=== PATIENT | female | born 1955 | race Caucasian/White ===

== ENCOUNTER 2018-07-11 13:27 | Inpatient (IN) | payer MEDICAID ==
[~2018-07-11] VITALS: Ht 152.4 cm; Wt 55.3 kg
[2018-07-11] MEDS: SODIUM CHLORIDE 0.45% 1,000 ML IV SCH (05:20)
[2018-07-11] MEDS ORDERED: TOPA25 MT (13:37)
[2018-07-11] MEDS ORDERED: ASPI-986 PO (13:37)
[2018-07-11] MEDS ORDERED: METF-815 PO (13:37)
[2018-07-11] MEDS ORDERED: FERR220S12 PO (13:37)
[2018-07-11] MEDS ORDERED: KEPP250 PO (13:37)
[2018-07-11] MEDS ORDERED: HYDR12.529 MT (13:37)
[2018-07-11] MEDS ORDERED: ATOR10TA PO (13:37)
[2018-07-11] MEDS ORDERED: CALC-30 PO (13:37)
[2018-07-11 20:08] LABS: BASOPHILS % 1.1 % (0.0-2.0); EOSINOPHILS % 3.7 % (0.0-5.0); HEMATOCRIT. 23.9 % (36.0-48.0); HEMOGLOBIN. 8.1 g/dL (12.0-16.0); LYMPHOCYTES % 12.5 % (20.0-50.0); MEAN CORPUSCULAR VOLUME 88.2 fL (81.0-99.0); MEAN PLATELET VOLUME 11.7 fl (7.4-10.4); MONOCYTES % 3.7 % (2.0-8.0); PLATELET 236 x1000/uL (130-400); RED BLOOD CELL COUNT 2.71 mill/uL (4.2-5.4); RED CELL DISTRIBUTION WIDTH 13.7 % (11.6-14.6)
[2018-07-11 20:13] LABS: CHLORIDE 111 mEq/L (98-107)
[2018-07-11] MEDS ORDERED: DOCUSATE SODIUM 100MG CAPSULE PO PRN (21:45)
[2018-07-11] MEDS ORDERED: HYDROCODONE/ACETAMINOPHEN 5/325MG TABLET PO PRN (21:45)
[2018-07-11] MEDS ORDERED: GUAIFENESIN 200MG/10ML SUGAR FREE UDC PO PRN (21:45)
[2018-07-11] MEDS ORDERED: CLONIDINE 0.1MG TABLET PO PRN (21:45)
[2018-07-11] MEDS ORDERED: DIPHENHYDRAMINE 50MG/ML VIAL IV PRN (21:45)
[2018-07-11] MEDS ORDERED: MAGNESIUM/ALUMINUM HYDROXIDE/SIMETHICONE 30ML UDC PO PRN (21:45)
[2018-07-11] MEDS ORDERED: IPRATROPIUM/ALBUTEROL 0.5-3(2.5)MG/3ML NEB INH PRN (21:45)
[2018-07-11] MEDS ORDERED: ACETAMINOPHEN 325MG TABLET PO PRN (21:45)
[2018-07-11] MEDS ORDERED: ONDANSETRON HCL 4MG/2ML INJ IV PRN (21:45)
[2018-07-11] MEDS ORDERED: LORAZEPAM 2MG/ML CPJ IV PRN (21:45)
[2018-07-11] MEDS ORDERED: MORPHINE SULFATE 4 MG/ML CPJ (NOT FOR IM USE) IV PRN (21:45)
[2018-07-12] VITALS (13 sets, daily range): BP systolic 88–114; BP diastolic 41–66
[2018-07-12 05:15] LABS: BASOPHILS % 1.2 % (0.0-2.0); EOSINOPHILS % 4.8 % (0.0-5.0); LYMPHOCYTES % 21.8 % (20.0-50.0); MEAN CORPUSCULAR HEMOGLOBIN 29.5 pg (28.0-32.0); MEAN CORPUSCULAR VOLUME 87.6 fL (81.0-99.0); MEAN PLATELET VOLUME 10.6 fl (7.4-10.4); MONOCYTES % 6.5 % (2.0-8.0); NEUTROPHILS % 65.7 % (40.0-76.0); PLATELET 188 x1000/uL (130-400); RED BLOOD CELL COUNT 2.34 mill/uL (4.2-5.4); RED CELL DISTRIBUTION WIDTH 13.2 % (11.6-14.6)
[2018-07-12 05:17] LABS: CHLORIDE 112 mEq/L (98-107)
[2018-07-12 05:25] LABS: HEMATOCRIT. 20.5 % (36.0-48.0); HEMOGLOBIN. 6.9 g/dL (12.0-16.0)
[2018-07-12 05:29] LABS: LDL CHOLESTEROL 58 mg/dL (5-100)
[2018-07-12 05:30] LABS: HDL CHOLESTEROL 36 mg/dL (40-59)
[2018-07-12 05:32] LABS: T4 FREE 1.06 ng/dL (0.76-1.46)
[2018-07-12] MEDS ORDERED: NA PHOS,M-B/NA PHOS,DI-BA ENEMA 118ML PR PRN (09:00)
[2018-07-12] MEDS ORDERED: BLOOD SUGAR DIAGNOSTIC STRIP TEST SCH (09:39)
[2018-07-12] MEDS ORDERED: INSULIN LISPRO 100 UNITS/ML SUBCUT SCH (09:39)
[2018-07-12] MEDS ORDERED: DEXTROSE 50% WATER 50ML SYRINGE IV PRN (09:45)
[2018-07-12] MEDS: BLOOD SUGAR DIAGNOSTIC STRIP TEST SCH ×3 (12:04→21:43)
[2018-07-12] MEDS: INSULIN LISPRO 100 UNITS/ML SUBCUT SCH ×4 (12:50→21:00)
[2018-07-12] MEDS: PANTOPRAZOLE SODIUM 40 MG/VIAL IV SCH ×2 (16:59→21:43)
[2018-07-12 17:04] LABS: HEMATOCRIT 25.6 % (36.0-48.0); HEMOGLOBIN 8.7 g/dL (12.0-16.0)
[2018-07-12 17:13] LABS: INR 1.1; PARTIAL THROMBOPLASTIN TIME 27.5 sec (23.4-31.0); PROTHROMBIN TIME 10.6 sec (9.1-11.1)
[2018-07-12 17:36] LABS: FERRITIN 33 ng/mL (10-291)
[2018-07-12 18:04] LABS: TOTAL IRON BINDING CAPACITY 266 ug/dL (250-450)
[2018-07-12] MEDS: FERROUS SULFATE 325MG TABLET PO SCH (19:00)
[2018-07-12] MEDS: LEVETIRACETAM 500MG/5ML CUP PO SCH (21:43)
[2018-07-12] MEDS ORDERED: CYCL10TA7 PO (23:49)
[2018-07-12] MEDS ORDERED: DICL50TA9 PO (23:50)
[2018-07-13] VITALS: BP 97/42
[2018-07-13 00:12] LABS: HEMATOCRIT 26.1 % (36.0-48.0); HEMOGLOBIN 9.5 g/dL (12.0-16.0)
[2018-07-13 00:21] LABS: INR 1.1; PROTHROMBIN TIME 10.7 sec (9.1-11.1)
[2018-07-13 04:00] VITALS: BP 113/41
[2018-07-13] MEDS: BLOOD SUGAR DIAGNOSTIC STRIP TEST SCH ×4 (06:39→21:00)
[2018-07-13] MEDS: SODIUM CHLORIDE 0.45% 1,000 ML IV SCH ×3 (06:46→11:02)
[2018-07-13 06:58] LABS: BASOPHILS % 0.6 % (0.0-2.0); EOSINOPHILS % 3.7 % (0.0-5.0); HEMATOCRIT. 26.3 % (36.0-48.0); HEMOGLOBIN. 9.2 g/dL (12.0-16.0); LYMPHOCYTES % 15.7 % (20.0-50.0); MEAN CORPUSCULAR HEMOGLOBIN 30.9 pg (28.0-32.0); MEAN CORPUSCULAR VOLUME 88.1 fL (81.0-99.0); MEAN PLATELET VOLUME 11.3 fl (7.4-10.4); MONOCYTES % 5.3 % (2.0-8.0); NEUTROPHILS % 74.7 % (40.0-76.0); PLATELET 167 x1000/uL (130-400); RED BLOOD CELL COUNT 2.98 mill/uL (4.2-5.4); RED CELL DISTRIBUTION WIDTH 13.9 % (11.6-14.6)
[2018-07-13 07:01] LABS: PARTIAL THROMBOPLASTIN TIME 27.5 sec (23.4-31.0); PROTHROMBIN TIME 10.5 sec (9.1-11.1)
[2018-07-13] MEDS: INSULIN LISPRO 100 UNITS/ML SUBCUT SCH ×4 (07:35→20:46)
[2018-07-13 07:37] LABS: CHLORIDE 112 mEq/L (98-107)
[2018-07-13] MEDS: FERROUS SULFATE 325MG TABLET PO SCH ×3 (07:50→17:29)
[2018-07-13] MEDS: LEVETIRACETAM 500MG/5ML CUP PO SCH ×2 (07:58→20:44)
[2018-07-13] MEDS: HYDROCHLOROTHIAZIDE 25MG TABLET PO SCH (07:58)
[2018-07-13 08:00] VITALS: BP 101/48
[2018-07-13] MEDS: PANTOPRAZOLE SODIUM 40 MG/VIAL IV SCH ×2 (08:18→20:45)
[2018-07-13] MEDS ORDERED: SIMETHICONE 40 MG/0.6 ML 30ML ONE (11:58)
[2018-07-13] MEDS ORDERED: BACTERIOSTATIC SODIUM CHLORIDE 0.9% 30ML VIAL IJ ONE (11:58)
[2018-07-13] MEDS ORDERED: MIDAZOLAM HCL 5 MG/5 ML VIAL ONE (13:02)
[2018-07-13] MEDS ORDERED: FENTANYL CITRATE/PF 50MCG/ML 2ML VIAL ONE (13:02)
[2018-07-13] MEDS ORDERED: FENTANYL CITRATE/PF 50MCG/ML 2ML VIAL IV ONE (13:11)
[2018-07-13] MEDS ORDERED: MIDAZOLAM HCL 2 MG/2 ML VIAL IV PRN (13:12)
[2018-07-13] MEDS: SUCRALFATE 1 G/10 ML UDC PO SCH ×2 (17:29→20:44)
[2018-07-13 20:00] VITALS: BP 139/69
[2018-07-13 20:39] LABS: HEMATOCRIT 25.6 % (36.0-48.0); HEMOGLOBIN 8.7 g/dL (12.0-16.0)
[2018-07-13 21:52] LABS: VITAMIN B12 SERUM 1393 pg/mL (211-911)
[2018-07-13 22:13] LABS: FOLIC ACID (FOLATE) SERUM > 20.00 ng/mL (>5.38)
[2018-07-14] VITALS: BP 99/42
[2018-07-14] MEDS: SODIUM CHLORIDE 0.45% 1,000 ML IV SCH ×2 (00:39→12:02)
[2018-07-14 04:00] VITALS: BP 104/44
[2018-07-14] MEDS: SUCRALFATE 1 G/10 ML UDC PO SCH ×2 (06:25→12:22)
[2018-07-14] MEDS: BLOOD SUGAR DIAGNOSTIC STRIP TEST SCH ×2 (06:26→12:22)
[2018-07-14] MEDS: INSULIN LISPRO 100 UNITS/ML SUBCUT SCH ×2 (07:45→12:22)
[2018-07-14 08:00] VITALS: BP 111/42
[2018-07-14] MEDS: LEVETIRACETAM 500MG/5ML CUP PO SCH (08:11)
[2018-07-14] MEDS: PANTOPRAZOLE SODIUM 40 MG/VIAL IV SCH (08:11)
[2018-07-14] MEDS: FERROUS SULFATE 325MG TABLET PO SCH ×2 (08:11→12:23)
[2018-07-14] MEDS: HYDROCHLOROTHIAZIDE 25MG TABLET PO SCH (08:11)
[2018-07-14 08:46] LABS: BASOPHILS % 0.6 % (0.0-2.0); EOSINOPHILS % 3.5 % (0.0-5.0); HEMATOCRIT. 26.1 % (36.0-48.0); LYMPHOCYTES % 17.1 % (20.0-50.0); MEAN CORPUSCULAR HEMOGLOBIN 30.6 pg (28.0-32.0); MEAN CORPUSCULAR VOLUME 88.8 fL (81.0-99.0); MEAN PLATELET VOLUME 11.3 fl (7.4-10.4); MONOCYTES % 5.1 % (2.0-8.0); NEUTROPHILS % 73.7 % (40.0-76.0); PLATELET 190 x1000/uL (130-400); RED BLOOD CELL COUNT 2.94 mill/uL (4.2-5.4); RED CELL DISTRIBUTION WIDTH 13.9 % (11.6-14.6)
[2018-07-14 09:02] LABS: CHLORIDE 113 mEq/L (98-107)
[2018-07-14 12:00] VITALS: BP 124/62
[2018-07-14 16:00] VITALS: BP 138/76
[2018-07-14 16:07] LABS: HEMATOCRIT 28.4 % (36.0-48.0); HEMOGLOBIN 9.8 g/dL (12.0-16.0)
[2018-07-14 16:19] VITALS: BP 138/76
== END 2018-07-14 16:55 | disposition home or self-care (01) | DRG 241 ==
LOC: ER 13:27 → EDBEDREQTM 21:11 → EDBEDREQ 21:11 → 6WST 07-12 07:59 → ENRESERV 07-12 07:59
PROVIDERS: ADMIT Internal Medicine; ATTEND Internal Medicine
PROC: 30233N1 Transfusion of Nonautologous Red Blood Cells into Peripheral Vein, Percutaneous Approach (ICD-10-PCS; 2018-07-12)
PROC: 0DB78ZX Excision of Stomach, Pylorus, Via Natural or Artificial Opening Endoscopic, Diagnostic (ICD-10-PCS; principal; 2018-07-13 14:00)
DX: K29.61 Other gastritis with bleeding (principal); E44.1 Mild protein-calorie malnutrition; D64.9 Anemia, unspecified; E11.9 Type 2 diabetes mellitus without complications; I10 Essential (primary) hypertension; K44.9 Diaphragmatic hernia without obstruction or gangrene; Z79.899 Other long term (current) drug therapy; Z79.82 Long term (current) use of aspirin; Z90.89 Acquired absence of other organs; Z79.84 Long term (current) use of oral hypoglycemic drugs
CPT/HCPCS: 36415; 36430; 74176; 76700; 80048; 80061; 82270; 82607; 82728; 82746; 82962; 83540; 83550; 84439; 84443; 85014; 85018; 85384; 86850; 86900; 86920; 88305; 88313; 96361; 96374; 99285; C9113; J1815; J2250; J3010; J3490; J7040; P9016

== ENCOUNTER 2021-04-13 22:09 | Emergency (ER) | payer MEDICARE, MEDICAID ==
[~2021-04-13] VITALS: Ht 152.4 cm; Wt 65.0 kg
[~2021-04-13 22:09] MED LIST: ATOR10TA PO; CALC-1249 PO; CYCL10TA7 PO; FERR220S12 PO; HYDR12.529 MT; KEPP250 PO; METF-873 PO; TOPA25 MT
[2021-04-13] MEDS ORDERED: TETANUS, DIPHTHERIA, PERTUSSIS VAC/PF 0.5ML (>7YR OLD) IM ONE (23:45)
[2021-04-13] MEDS ORDERED: LIDOCAINE HCL/PF 1% 10 MG/ML 5ML VIAL INFIL ONE (23:45)
[2021-04-14 00:18] LABS: BASOPHILS % 1.2 % (0.0-2.0); EOSINOPHILS % 3.5 % (0.0-5.0); HEMATOCRIT. 30.2 % (36.0-48.0); LYMPHOCYTES % 16.8 % (20.0-50.0); MEAN CORPUSCULAR HEMOGLOBIN 29.4 pg (28.0-32.0); MEAN CORPUSCULAR VOLUME 88.5 fL (81.0-99.0); MEAN PLATELET VOLUME 10.5 fl (7.4-10.4); MONOCYTES % 6.9 % (2.0-8.0); NEUTROPHILS % 71.6 % (40.0-76.0); PLATELET 131 x1000/uL (130-400); RED BLOOD CELL COUNT 3.41 mill/uL (4.2-5.4); RED CELL DISTRIBUTION WIDTH 14.3 % (11.6-14.6)
[2021-04-14 00:24] LABS: INR 0.9; PARTIAL THROMBOPLASTIN TIME 24.9 sec (23.4-31.0); PROTHROMBIN TIME 10.2 sec (9.6-11.0)
[2021-04-14 02:42] VITALS: BP 152/68
== END 2021-04-14 02:43 | disposition home or self-care (01) ==
LOC: ER 22:09
DX: S81.812A Laceration without foreign body, left lower leg, initial encounter (principal); E11.9 Type 2 diabetes mellitus without complications; I10 Essential (primary) hypertension; Z04.9 Encounter for examination and observation for unspecified reason; Z86.59 Personal history of other mental and behavioral disorders; X58.XXXA Exposure to other specified factors, initial encounter; Y93.89 Activity, other specified; Y92.89 Other specified places as the place of occurrence of the external cause; Y99.8 Other external cause status
CPT/HCPCS: 12001; 36415; 80048; 85025; 85610; 85730; 90471; 90715; 99283; J3490

== ENCOUNTER 2021-04-16 15:55 | Emergency (ER) | payer MEDICARE, MEDICAID ==
[~2021-04-16] VITALS: Ht 160 cm; Wt 63.0 kg
[2021-04-16] MEDS ORDERED: HYDR-4622 TP (17:22)
[2021-04-16 17:34] VITALS: BP 130/78
== END 2021-04-16 17:34 | disposition home or self-care (01) ==
LOC: ER 15:55
DX: I83.892 Varicose veins of left lower extremity with other complications (principal); L30.9 Dermatitis, unspecified; Z79.899 Other long term (current) drug therapy
CPT/HCPCS: 99282

== ENCOUNTER 2024-04-05 18:55 | Inpatient (IN) | payer MEDICARE, MEDICAID ==
[~2024-04-05] VITALS: Ht 154.9 cm; Wt 59.4 kg
[~2024-04-05 18:55] MED LIST changes: +ATOR40TA70 PO; +CYCL10TA21 PO; -CYCL10TA7 PO; +HYDR-4622 TP; +LEVE500T19 PO; +LEVE500T98 PO; +PANT40TA51 PO
[2024-04-05] MEDS: SODIUM CHLORIDE 0.9% 1000ML BAG (SEPSIS BOLUS) IV ONE (20:17)
[2024-04-05] MEDS: PIPERACILLIN/TAZO 3.375G/50ML 50 ML IV ONE (20:17)
[2024-04-05] MEDS: VANCOMYCIN 1G PREMIX 200 ML IV ONE (20:17)
[2024-04-05] MEDS: ACETAMINOPHEN 325MG TABLET PO STA (20:18)
[2024-04-05 20:27] LABS: RED CELL DISTRIBUTION WIDTH 22.5 % (11.6-14.6)
[2024-04-05 20:28] LABS: CLARITY URINE CLOUDY (CLEAR); COLOR URINE DARK YELLOW (YELLOW)
[2024-04-05 20:29] LABS: HEMOGLOBIN. 8.7 g/dL (12.0-16.0); MEAN CORPUSCULAR HEMOGLOBIN 25.4 pg (28.0-32.0); MEAN CORPUSCULAR HGB CONC 31.1 g/dL (31.0-37.0); MEAN CORPUSCULAR VOLUME 81.6 fL (81.0-99.0); PLATELET 177 x1000/uL (130-400); RED BLOOD CELL COUNT 3.43 mill/uL (4.2-5.4); WHITE BLOOD COUNT 5.4 x1000/uL (4.5-11.0)
[2024-04-05 20:29] LABS: PH URINE 5.5 (4.5-8.0); SPECIFIC GRAVITY URINE 1.014 (1.005-1.030)
[2024-04-05 20:30] LABS: GLUCOSE URINE NEGATIVE (NEGATIVE); KETONES URINE NEGATIVE (NEGATIVE); NITRITE URINE POSITIVE (NEGATIVE); OCCULT BLOOD URINE 1+ (NEGATIVE); PROTEIN URINE 2+ (NEGATIVE)
[2024-04-05 20:30] LABS: DIFFERENTIAL COMMENT 1
[2024-04-05 20:31] LABS: LEUKOCYTE ESTERASE URINE 1+ (NEGATIVE)
[2024-04-05 20:33] LABS: RBC URINE 0-2 /hpf (0-2)
[2024-04-05 20:33] LABS: CHLORIDE 105 mEq/L (98-107); POTASSIUM 4.1 mEq/L (3.5-5.1); SODIUM 137 mEq/L (136-145)
[2024-04-05 20:34] LABS: CARBON DIOXIDE 22 mEq/L (21-32)
[2024-04-05 20:34] LABS: BACTERIA URINE 1+; SQUAMOUS EPITHELIAL CELL URINE 1+ /lpf (RARE/1+)
[2024-04-05 20:35] LABS: CALCIUM 9.2 mg/dL (8.7-10.4)
[2024-04-05 20:39] LABS: CREATININE 1.6 mg/dL (0.6-1.0); GLUCOSE 285 mg/dL (70-105)
[2024-04-05 20:40] LABS: UREA NITROGEN BLOOD 31 mg/dL (9-23)
[2024-04-05 20:41] LABS: ALANINE AMINOTRANSFERASE 24 IU/L (10-49); ALBUMIN 4.5 g/dL (3.2-4.8); ASPARTATE AMINOTRANSFERASE 37 IU/L (<34)
[2024-04-05 20:42] LABS: BILIRUBIN DIRECT 0.2 mg/dL (<=3.0); BILIRUBIN TOTAL 0.4 mg/dL (0.1-1.0); PROTEIN TOTAL 7.2 g/dL (6.0-8.3)
[2024-04-05 20:43] LABS: PROTHROMBIN TIME 11.1 sec (9.6-11.0)
[2024-04-05 20:53] LABS: PLATELET ESTIMATE NORMAL
[2024-04-05 21:05] LABS: TROPONIN I HIGH SENSITIVITY 43 ng/L (3.0-34)
[2024-04-05] MEDS ORDERED: CLONIDINE 0.1MG TABLET PO PRN (22:30)
[2024-04-05] MEDS ORDERED: DOCUSATE SODIUM 100MG CAPSULE PO PRN (22:30)
[2024-04-05] MEDS ORDERED: GUAIFENESIN 200MG/10ML SUGAR FREE UDC PO PRN (22:30)
[2024-04-05] MEDS ORDERED: ONDANSETRON HCL 4MG/2ML INJ IV PRN (22:30)
[2024-04-05] MEDS ORDERED: MAGNESIUM/ALUMINUM HYDROXIDE/SIMETHICONE 30ML UDC PO PRN (22:30)
[2024-04-05] MEDS ORDERED: ACETAMINOPHEN 325MG TABLET PO PRN (22:30)
[2024-04-05] MEDS ORDERED: IPRATROPIUM/ALBUTEROL 0.5-3(2.5)MG/3ML NEB HHN PRN (23:10)
[2024-04-05 23:32] LABS: IRON 23 ug/dL (50-170); TRIGLYCERIDE 245 mg/dL (0-150)
[2024-04-05 23:33] LABS: LDL CHOLESTEROL 50 mg/dL (5-100)
[2024-04-05 23:34] LABS: CHOLESTEROL 142 mg/dL (<200); HDL CHOLESTEROL 46 mg/dL (>65); PHOSPHORUS 2.4 mg/dL (2.5-4.9)
[2024-04-05 23:35] LABS: TOTAL IRON BINDING CAPACITY 435 ug/dl (250-425)
[2024-04-05 23:38] LABS: T4 FREE 1.28 ng/dL (0.89-1.76)
[2024-04-05 23:39] LABS: THYROID STIMULATING HORMONE 1.23 uIU/mL (0.55-4.78)
[2024-04-06] MEDS: DOXYCYCLINE 100MG/100ML 100 ML IV SCH (01:31)
[2024-04-06] MEDS: MAGNESIUM 2 G PREMIX 50 ML IV NR (04:33)
[2024-04-06] MEDS: FERROUS SULFATE 325MG TABLET PO SCH (06:54)
[2024-04-06 08:22] LABS: CARBON DIOXIDE 24 mEq/L (21-32); CHLORIDE 106 mEq/L (98-107); SODIUM 139 mEq/L (136-145)
[2024-04-06 08:23] LABS: CALCIUM 8.7 mg/dL (8.7-10.4); HEMATOCRIT. 27.5 % (36.0-48.0); HEMOGLOBIN. 8.1 g/dL (12.0-16.0); MEAN CORPUSCULAR HEMOGLOBIN 24.1 pg (28.0-32.0); MEAN CORPUSCULAR HGB CONC 29.6 g/dL (31.0-37.0); MEAN CORPUSCULAR VOLUME 81.6 fL (81.0-99.0); MEAN PLATELET VOLUME 9.8 fl (7.4-10.4); PLATELET 152 x1000/uL (130-400); RED BLOOD CELL COUNT 3.36 mill/uL (4.2-5.4); RED CELL DISTRIBUTION WIDTH 22.5 % (11.6-14.6); WHITE BLOOD COUNT 5.9 x1000/uL (4.5-11.0)
[2024-04-06 08:27] LABS: CREATININE 1.3 mg/dL (0.6-1.0); GLUCOSE 212 mg/dL (70-105)
[2024-04-06 08:27] LABS: CREATINE KINASE 96 IU/L (34-145)
[2024-04-06 08:28] LABS: TROPONIN I HIGH SENSITIVITY 66 ng/L (3.0-34)
[2024-04-06 08:28] LABS: UREA NITROGEN BLOOD 25 mg/dL (9-23)
[2024-04-06 08:30] LABS: PHOSPHORUS 2.7 mg/dL (2.5-4.9)
[2024-04-06 08:37] LABS: DIFFERENTIAL COMMENT 1
[2024-04-06] MEDS: AMLODIPINE 5MG TABLET PO SCH (09:00)
[2024-04-06] MEDS: ATORVASTATIN CALCIUM 40MG TABLET PO SCH (10:44)
[2024-04-06] MEDS: LEVETIRACETAM 500MG TABLET PO SCH (10:44)
[2024-04-06] MEDS: PIPERACILLIN/TAZO 3.375G/50ML 50 ML IV SCH (10:44)
[2024-04-06] MEDS: PANTOPRAZOLE SODIUM 40 MG/VIAL IV SCH (10:49)
[2024-04-06] MEDS ORDERED: LORAZEPAM 2MG/ML INJ IV PRN (11:00)
[2024-04-06] MEDS ORDERED: DEXTROSE 50% WATER 50ML SYRINGE IV PRN (11:00)
[2024-04-06] MEDS: SODIUM CHLORIDE 0.9% 1,000 ML IV ONE (11:43)
[2024-04-06] MEDS: BLOOD SUGAR DIAGNOSTIC STRIP TEST SCH (11:48)
[2024-04-06] MEDS: ENOXAPARIN 30MG/0.3ML SYR SUBCUT SCH (11:53)
[2024-04-06] MEDS: INSULIN LISPRO 100 UNITS/ML SUBCUT SCH (12:02)
[2024-04-06] MEDS: PIPERACILLIN/TAZO 3.375G/50ML IV SCH (15:12)
[2024-04-06] MEDS: VANCOMYCIN 500MG PREMIX 100 ML IV SCH (15:28)
[2024-04-06 15:50] LABS: CREATINE KINASE 79 IU/L (34-145)
[2024-04-06 16:37] LABS: TROPONIN I HIGH SENSITIVITY 57 ng/L (3.0-34)
[2024-04-06 17:00] LABS: AMMONIA < 17 uMol/L (<32)
[2024-04-06 18:45] LABS: PLATELET ESTIMATE NORMAL
[2024-04-06] MEDS: FAMOTIDINE 20MG TABLET PO SCH (22:04)
[2024-04-07] VITALS: BP 123/75; PULSE 96; RESP 18; TEMP 36.50292
[2024-04-07 00:41] VITALS: BP 122/75; PULSE 96; RESP 18; TEMP 36.5292
[2024-04-07 04:00] VITALS: BP 127/57; PULSE 80; RESP 18; TEMP 36.50292; O2SAT 99
[2024-04-07] MEDS: ACETAMINOPHEN 325MG TABLET PO PRN (04:50)
[2024-04-07 06:45] LABS: POTASSIUM 3.4 mEq/L (3.5-5.1)
[2024-04-07 06:47] LABS: CALCIUM 8.8 mg/dL (8.7-10.4)
[2024-04-07 06:51] LABS: CREATININE 1.4 mg/dL (0.6-1.0)
[2024-04-07 07:03] LABS: HEMATOCRIT. 26.1 % (36.0-48.0); MEAN CORPUSCULAR HEMOGLOBIN 25.1 pg (28.0-32.0); MEAN CORPUSCULAR HGB CONC 30.7 g/dL (31.0-37.0); MEAN CORPUSCULAR VOLUME 81.8 fL (81.0-99.0); PLATELET 174 x1000/uL (130-400); RED BLOOD CELL COUNT 3.19 mill/uL (4.2-5.4); RED CELL DISTRIBUTION WIDTH 22.4 % (11.6-14.6); WHITE BLOOD COUNT 4.3 x1000/uL (4.5-11.0)
[2024-04-07 07:09] LABS: DIFFERENTIAL COMMENT 1
[2024-04-07 08:00] VITALS: BP 121/52; PULSE 62; RESP 20; TEMP 36.22512; O2SAT 98
[2024-04-07] MEDS: POTASSIUM CHLORIDE 20MEQ TABLET SR PO NR (08:14)
[2024-04-07] MEDS ORDERED: AMLO5TAB88 PO (10:28)
[2024-04-07] MEDS ORDERED: NITR-87 PO (10:29)
[2024-04-07 10:59] VITALS: BP 125/88; PULSE 88; TEMP 97.2; O2SAT 98
[2024-04-07] MEDS ORDERED: AMOX250S70 PO (11:23)
[2024-04-07 12:00] VITALS: BP 115/55; PULSE 65; RESP 18; TEMP 36.16956; O2SAT 98
[2024-04-07] MEDS: VANCOMYCIN 750MG PREMIX 150 ML IV SCH (14:08)
[2024-04-07 17:11] LABS: PLATELET ESTIMATE NORMAL
[2024-04-07 17:12] LABS: ANISOCYTOSIS 1+; OVALOCYTES 1+
[2024-04-07] MEDS ORDERED: ATORVASTATIN CALCIUM 40MG TABLET PO SCH (21:00)
[2024-04-08] MEDS ORDERED: FERROUS SULFATE 325MG TABLET PO SCH (09:00)
== END 2024-04-07 15:35 | disposition home or self-care (01) | DRG 871 ==
LOC: ER 19:01 → EDBEDREQ 19:34 → 5WST 21:26 → EDBEDREQSVC 21:33 → EDBEDREQ 21:33 → 8WST 04-06 23:14
PROVIDERS: ADMIT Internal Medicine; ATTEND Internal Medicine
DX: A41.59 Other Gram-negative sepsis (principal); G93.41 Metabolic encephalopathy; I21.A1 Myocardial infarction type 2; N17.9 Acute kidney failure, unspecified; N39.0 Urinary tract infection, site not specified; R18.8 Other ascites; C18.9 Malignant neoplasm of colon, unspecified; C78.00 Secondary malignant neoplasm of unspecified lung; R65.20 Severe sepsis without septic shock; I12.9 Hypertensive chronic kidney disease with stage 1 through stage 4 chronic kidney disease, or unspecified chronic kidney disease; B96.89 Other specified bacterial agents as the cause of diseases classified elsewhere; D50.9 Iron deficiency anemia, unspecified; D63.8 Anemia in other chronic diseases classified elsewhere; E78.5 Hyperlipidemia, unspecified; E11.22 Type 2 diabetes mellitus with diabetic chronic kidney disease; E11.65 Type 2 diabetes mellitus with hyperglycemia; E87.8 Other disorders of electrolyte and fluid balance, not elsewhere classified; G40.909 Epilepsy, unspecified, not intractable, without status epilepticus; K43.5 Parastomal hernia without obstruction or gangrene; K44.9 Diaphragmatic hernia without obstruction or gangrene; N18.32 Chronic kidney disease, stage 3b; N13.9 Obstructive and reflux uropathy, unspecified; Z93.3 Colostomy status; Z93.6 Other artificial openings of urinary tract status; Z79.84 Long term (current) use of oral hypoglycemic drugs; Z92.21 Personal history of antineoplastic chemotherapy
CPT/HCPCS: 36415; 71045; 74177; 80048; 80061; 80076; 80202; 81003; 82043; 82140; 82378; 82550; 82570; 82728; 82962; 83036; 83540; 83550; 83605; 83735; 83880; 84100; 84145; 84439; 84443; 84484; 85025; 85379; 87077; 87186; 93005; 93970; 99285; J1650; J1815; J2470; J2543; J3370; J3475; J3490; J7030